=== PATIENT | female | born 1995 | race Caucasian/White ===

== ENCOUNTER 2019-10-30 07:41 | Emergency (ER) | payer OTHER ==
[~2019-10-30] VITALS: Ht 162.6 cm; Wt 90.7 kg
[~2019-10-30 07:41] MED LIST: NAPROSYN500 MG PO; NOHOMEMEDICATIONS; ZOFRAN 4 MG ORAL4 M1 DIS
[2019-10-30] MEDS ORDERED: ZPAK PO (08:04)
[2019-10-30] MEDS ORDERED: VENTOLIN HFA 1818 GM INH (08:04)
[2019-10-30] MEDS ORDERED: PREDNISONE 20 M20 M1 PO (08:04)
[2019-10-30 10:11] VITALS: BP 116/69
== END 2019-10-30 10:15 | disposition home or self-care (01) ==
LOC: M.ERS 07:41
DX: J45.909 Unspecified asthma, uncomplicated (principal); Z88.5 Allergy status to narcotic agent; Z88.8 Allergy status to other drugs, medicaments and biological substances

== ENCOUNTER 2019-11-12 11:00 | Emergency (ER) | payer OTHER ==
[~2019-11-12] VITALS: Ht 162.6 cm; Wt 90.7 kg
[~2019-11-12 11:00] MED LIST changes: +PREDNISONE 20 M20 M1 PO; +VENTOLIN HFA 1818 GM INH; +ZPAK PO
[2019-11-12 12:12] VITALS: BP 104/78
== END 2019-11-12 12:13 | disposition home or self-care (01) ==
LOC: M.ERS 11:00
DX: B34.9 Viral infection, unspecified (principal); J45.909 Unspecified asthma, uncomplicated; F17.210 Nicotine dependence, cigarettes, uncomplicated; Z88.5 Allergy status to narcotic agent; Z88.8 Allergy status to other drugs, medicaments and biological substances